=== PATIENT | male | born 1970 | race Caucasian/White ===

== ENCOUNTER 2019-05-09 12:09 | Emergency (ER) | payer OTHER, MEDICAID ==
[~2019-05-09] VITALS: Ht 167.6 cm; Wt 85.7 kg
--- NOTE | 2019-05-09 12:09 | NUR ---
Patient to ER bed 05 to gown for evaluation. Side rails up.
--- NOTE | 2019-05-09 12:10 | NUR ---
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
--- NOTE | 2019-05-09 12:15 | NUR ---
Remi Arguello at bedside examining patient
[2019-05-09 12:43] VITALS: BP_SYST 136
[2019-05-09 13:09] VITALS: BP_SYST 132
--- NOTE | 2019-05-09 13:09 | NUR ---
Patient given written and verbal discharge instructions and verbalizes understanding. ER MD discussed with patient the results and treatment provided. Patient in stable condition. ID arm band removed. Rx of Ibuprofen and Keflex given. Patient educated on pain management and to follow up with PMD. Pain Scale 2/10 tolerable for patient. Opportunity for questions provided and answered. Medication side effect fact sheet provided.
== END 2019-05-09 13:09 | disposition home or self-care (01) ==
LOC: SED 12:09
DX: S61.011A Laceration without foreign body of right thumb without damage to nail, initial encounter (principal); W26.8XXA Contact with other sharp object(s), not elsewhere classified, initial encounter; Y93.89 Activity, other specified; Y92.89 Other specified places as the place of occurrence of the external cause; Y99.8 Other external cause status
CPT/HCPCS: 99283